=== PATIENT | female | born 1955 | race Caucasian/White ===

== ENCOUNTER 2018-06-02 10:25 | Inpatient (IN) | payer OTHER ==
[~2018-06-02] VITALS: Ht 167.6 cm; Wt 137.2 kg
[2018-06-02] MEDS ORDERED: SODIUM CHLORIDE FLUSH 10ML SYR IVF ONE (11:30)
[2018-06-02 12:01] LABS: BASOPHILS # (AUTO) 0.12 x10^3/uL (0-0.1); BASOPHILS % (AUTO) 1 % (0-1); EOSINOPHILS # (AUTO) 0.22 x10^3/uL (0-0.4); EOSINOPHILS % (AUTO) 2 % (1-7); LYMPHOCYTES # (AUTO) 1.59 x10^3/uL (1-3.4); LYMPHOCYTES % (AUTO) 14 % (22-44); MD NO; MEAN CORPUSCULAR HGB CONC 33.3 g/dL (32.4-35.8); MEAN PLATELET VOLUME 8.4 fL (7.4-10.4); MONOCYTES # (AUTO) 0.68 x10^3/uL (0.2-0.8); MONOCYTES % (AUTO) 6 % (2-9); NEUTROPHILS # (AUTO) 8.78 x10^3/uL (1.8-6.8); NEUTROPHILS % (AUTO) 77 % (42-75); PLATELET COUNT 215 x10^3/uL (130-400); RED BLOOD COUNT 4.68 x10^6/uL (3.82-5.3); RED CELL DISTRIBUTION WIDTH 15.2 % (9.6-15.2)
[2018-06-02 12:11] LABS: ALANINE AMINOTRANSFERASE 46 U/L (12-78); ALBUMIN 2.9 g/dL (3.4-5.0); ANION GAP 10 mmol/L (5-15); CALCIUM 9.3 mg/dL (8.5-10.1); CHLORIDE 102 mmol/L (98-107); CREATININE 0.87 mg/dL (0.55-1.02)
[2018-06-02 12:16] LABS: ALKALINE PHOSPHATASE 140 U/L (45-117); BILIRUBIN,TOTAL 0.7 mg/dL (0.2-1.0); TOTAL PROTEIN 7.2 g/dL (6.4-8.2); TROPONIN I < 0.015 ng/mL (0.000-0.045)
[2018-06-02] MEDS ORDERED: OMNIPAQUE 350 MG/ML, 100ML BOTTLE ONE (12:57)
[2018-06-02] MEDS ORDERED: FUROSEMIDE 20 MG/2 ML IV ONE (13:00)
[2018-06-02] MEDS ORDERED: HEPARIN 25,000 UNITS/500ML PMX 500 ML ONE (13:29)
[2018-06-02] MEDS ORDERED: FUROSEMIDE 20 MG/2 ML ONE (13:29)
[2018-06-02] MEDS ORDERED: HEPARIN 5,000 UNITS/ML, 1ML ONE (13:29)
[2018-06-02] MEDS ORDERED: HEPARIN 25,000 UNITS/500ML PMX 500 ML IV PRN (13:30)
[2018-06-02] MEDS ORDERED: HEPARIN 5,000 UNITS/ML, 1ML IV ONE (13:30)
[2018-06-02] MEDS ORDERED: HEPARIN 5,000 UNITS/ML, 1ML IV PRN (13:30)
[2018-06-02] MEDS ORDERED: ONDANSETRON ODT 4 MG PO PRN (15:00)
[2018-06-02] MEDS ORDERED: morphine SULFATE 10 MG/ML, 1ML IVPush PRN (15:00)
[2018-06-02] MEDS ORDERED: ONDANSETRON 2MG/ML, 2ML IVPush PRN (15:00)
[2018-06-02] MEDS ORDERED: LABETALOL 5MG/ML, 20ML IVPush PRN (15:00)
[2018-06-02] MEDS ORDERED: POLYETHYLENE GLYCOL 17 GM PACKET PO PRN (15:00)
[2018-06-02] MEDS ORDERED: GUAIFENESIN/DM 200-20MG, 10ML UDC PO PRN (15:00)
[2018-06-02 15:05] VITALS: BP 140/97
[2018-06-02 15:51] LABS: FREE T4 (FREE THYROXINE) 1.31 ng/dL (0.76-1.46); TROPONIN I < 0.015 ng/mL (0.000-0.045)
[2018-06-02] MEDS ORDERED: LOSA100T2 PO (16:17)
[2018-06-02] MEDS ORDERED: ROSU20TA28 PO (16:23)
[2018-06-02] MEDS ORDERED: OMEG-123 PO (16:23)
[2018-06-02] MEDS ORDERED: POTA10TA11 PO (16:23)
[2018-06-02] MEDS ORDERED: GABA100C PO (16:23)
[2018-06-02] MEDS ORDERED: DOXA1TAB2 PO (16:23)
[2018-06-02] MEDS ORDERED: CALC-192 PO (16:23)
[2018-06-02] MEDS ORDERED: FURO20TA3 PO (16:23)
[2018-06-02] MEDS ORDERED: MULT-658 PO (16:23)
[2018-06-02] MEDS ORDERED: GABAPENTIN 100 MG CAPSULE PO PRN (17:30)
[2018-06-02] MEDS: ENOXAPARIN 40 MG/0.4 ML SQ SCH (18:06)
[2018-06-02] MEDS: ENOXAPARIN 100 MG/ML SQ SCH (18:06)
[2018-06-02 20:06] VITALS: BP 126/78
[2018-06-02 21:19] LABS: TROPONIN I < 0.015 ng/mL (0.000-0.045)
[2018-06-03 01:12] VITALS: BP 126/78
[2018-06-03 05:38] LABS: BASOPHILS # (AUTO) 0.08 x10^3/uL (0-0.1); BASOPHILS % (AUTO) 1 % (0-1); EOSINOPHILS # (AUTO) 0.41 x10^3/uL (0-0.4); EOSINOPHILS % (AUTO) 4 % (1-7); LYMPHOCYTES # (AUTO) 1.72 x10^3/uL (1-3.4); LYMPHOCYTES % (AUTO) 18 % (22-44); MD NO; MEAN CORPUSCULAR HEMOGLOBIN 34.9 pg (27.0-34.8); MEAN CORPUSCULAR HGB CONC 33.3 g/dL (32.4-35.8); MEAN CORPUSCULAR VOLUME 104.7 fL (80-100); MEAN PLATELET VOLUME 8.6 fL (7.4-10.4); MONOCYTES # (AUTO) 0.53 x10^3/uL (0.2-0.8); MONOCYTES % (AUTO) 6 % (2-9); NEUTROPHILS # (AUTO) 6.58 x10^3/uL (1.8-6.8); NEUTROPHILS % (AUTO) 71 % (42-75); PLATELET COUNT 199 x10^3/uL (130-400); RED BLOOD COUNT 4.49 x10^6/uL (3.82-5.3); RED CELL DISTRIBUTION WIDTH 15.6 % (9.6-15.2)
[2018-06-03 05:47] LABS: ALBUMIN 2.6 g/dL (3.4-5.0); ANION GAP 9 mmol/L (5-15); CALCIUM 9.1 mg/dL (8.5-10.1); CHLORIDE 102 mmol/L (98-107)
[2018-06-03 05:59] LABS: ALANINE AMINOTRANSFERASE 36 U/L (12-78); ALKALINE PHOSPHATASE 124 U/L (45-117); BILIRUBIN,TOTAL 0.9 mg/dL (0.2-1.0); CREATININE 0.91 mg/dL (0.55-1.02); TOTAL PROTEIN 6.5 g/dL (6.4-8.2)
[2018-06-03] MEDS: DOXAZOSIN 2MG TABLET PO SCH (07:37)
[2018-06-03] MEDS: SENNA/DOCUSATE TABLET PO SCH (07:37)
[2018-06-03] MEDS: ENOXAPARIN 100 MG/ML SQ SCH ×2 (07:37→20:45)
[2018-06-03] MEDS: ENOXAPARIN 40 MG/0.4 ML SQ SCH ×2 (07:37→20:45)
[2018-06-03] MEDS: THIAMINE 100MG TABLET PO SCH (07:38)
[2018-06-03] MEDS: FOLIC ACID 1 MG TABLET PO SCH (07:38)
[2018-06-03] MEDS: MULTIVITAMIN 1 TABLET PO SCH (07:38)
[2018-06-03] MEDS: DHA PO SCH (07:47)
[2018-06-03] MEDS: OMEGA PO SCH (07:47)
[2018-06-03] MEDS: EPA PO SCH (07:47)
[2018-06-03] MEDS: ROSUVASTATIN CALCIUM 20 MG PO SCH (07:47)
[2018-06-03] MEDS: FISH OIL PO SCH (07:47)
[2018-06-03 07:50] VITALS: BP 123/82
[2018-06-03] MEDS ORDERED: LOSARTAN 50MG TABLET PO SCH (09:00)
[2018-06-03 12:18] VITALS: BP 123/79
[2018-06-03] MEDS ORDERED: SODIUM CHLORIDE 0.9% 1,000 ML IV SCH (17:00)
[2018-06-03 20:00] VITALS: BP 119/83
[2018-06-04 01:38] VITALS: BP 109/75
[2018-06-04 05:58] LABS: BASOPHILS # (AUTO) 0.15 x10^3/uL (0-0.1); BASOPHILS % (AUTO) 2 % (0-1); EOSINOPHILS % (AUTO) 4 % (1-7); LYMPHOCYTES # (AUTO) 1.56 x10^3/uL (1-3.4); LYMPHOCYTES % (AUTO) 17 % (22-44); MD NO; MEAN CORPUSCULAR HEMOGLOBIN 34.5 pg (27.0-34.8); MEAN CORPUSCULAR HGB CONC 33.1 g/dL (32.4-35.8); MEAN CORPUSCULAR VOLUME 104.1 fL (80-100); MEAN PLATELET VOLUME 8.3 fL (7.4-10.4); MONOCYTES # (AUTO) 0.58 x10^3/uL (0.2-0.8); MONOCYTES % (AUTO) 6 % (2-9); NEUTROPHILS # (AUTO) 6.52 x10^3/uL (1.8-6.8); NEUTROPHILS % (AUTO) 71 % (42-75); PLATELET COUNT 218 x10^3/uL (130-400); RED BLOOD COUNT 4.39 x10^6/uL (3.82-5.3); RED CELL DISTRIBUTION WIDTH 15.3 % (9.6-15.2)
[2018-06-04 06:13] LABS: ALBUMIN 2.5 g/dL (3.4-5.0); CALCIUM 9.1 mg/dL (8.5-10.1); CREATININE 0.71 mg/dL (0.55-1.02)
[2018-06-04 06:19] LABS: ANION GAP 7 mmol/L (5-15); CHLORIDE 102 mmol/L (98-107)
[2018-06-04 07:36] VITALS: BP 119/79
[2018-06-04] MEDS: ENOXAPARIN 100 MG/ML SQ SCH (07:53)
[2018-06-04] MEDS: ENOXAPARIN 40 MG/0.4 ML SQ SCH (07:54)
[2018-06-04] MEDS: FOLIC ACID 1 MG TABLET PO SCH (09:24)
[2018-06-04] MEDS: SENNA/DOCUSATE TABLET PO SCH (09:24)
[2018-06-04] MEDS: THIAMINE 100MG TABLET PO SCH (09:24)
[2018-06-04] MEDS: MULTIVITAMIN 1 TABLET PO SCH (09:24)
[2018-06-04] MEDS: LOSARTAN 50MG TABLET PO SCH (09:24)
[2018-06-04] MEDS: EPA PO SCH (09:25)
[2018-06-04] MEDS: DOXAZOSIN 2MG TABLET PO SCH (09:25)
[2018-06-04] MEDS: ROSUVASTATIN CALCIUM 20 MG PO SCH (09:25)
[2018-06-04] MEDS: FISH OIL PO SCH (09:25)
[2018-06-04] MEDS: OMEGA PO SCH (09:25)
[2018-06-04] MEDS: DHA PO SCH (09:25)
[2018-06-04 13:24] VITALS: BP 117/77
[2018-06-04] MEDS: RIVAROXABAN 15 MG TABLET PO SCH (17:23)
[2018-06-04 21:00] VITALS: BP 117/72
[2018-06-05 02:13] VITALS: BP 125/77
[2018-06-05 05:37] LABS: BASOPHILS # (AUTO) 0.14 x10^3/uL (0-0.1); BASOPHILS % (AUTO) 2 % (0-1); EOSINOPHILS # (AUTO) 0.28 x10^3/uL (0-0.4); EOSINOPHILS % (AUTO) 4 % (1-7); LYMPHOCYTES # (AUTO) 1.05 x10^3/uL (1-3.4); LYMPHOCYTES % (AUTO) 14 % (22-44); MD NO; MEAN CORPUSCULAR HEMOGLOBIN 34.8 pg (27.0-34.8); MEAN CORPUSCULAR HGB CONC 33.5 g/dL (32.4-35.8); MEAN PLATELET VOLUME 8.4 fL (7.4-10.4); MONOCYTES # (AUTO) 0.38 x10^3/uL (0.2-0.8); MONOCYTES % (AUTO) 5 % (2-9); NEUTROPHILS % (AUTO) 75 % (42-75); PLATELET COUNT 221 x10^3/uL (130-400); RED BLOOD COUNT 4.24 x10^6/uL (3.82-5.3); RED CELL DISTRIBUTION WIDTH 15.4 % (9.6-15.2)
[2018-06-05 05:44] LABS: ALBUMIN 2.4 g/dL (3.4-5.0); CHLORIDE 100 mmol/L (98-107)
[2018-06-05 05:48] LABS: ANION GAP 5 mmol/L (5-15); CALCIUM 8.8 mg/dL (8.5-10.1); CREATININE 0.58 mg/dL (0.55-1.02)
[2018-06-05 07:12] VITALS: BP 123/85
[2018-06-05] MEDS: THIAMINE 100MG TABLET PO SCH (08:41)
[2018-06-05] MEDS: RIVAROXABAN 15 MG TABLET PO SCH (08:41)
[2018-06-05] MEDS: OMEGA PO SCH (08:42)
[2018-06-05] MEDS: ROSUVASTATIN CALCIUM 20 MG PO SCH (08:42)
[2018-06-05] MEDS: LOSARTAN 50MG TABLET PO SCH (08:42)
[2018-06-05] MEDS: MULTIVITAMIN 1 TABLET PO SCH (08:42)
[2018-06-05] MEDS: DHA PO SCH (08:42)
[2018-06-05] MEDS: EPA PO SCH (08:42)
[2018-06-05] MEDS: FOLIC ACID 1 MG TABLET PO SCH (08:42)
[2018-06-05] MEDS: DOXAZOSIN 2MG TABLET PO SCH (08:42)
[2018-06-05] MEDS: SENNA/DOCUSATE TABLET PO SCH (08:42)
[2018-06-05] MEDS: FISH OIL PO SCH (08:42)
[2018-06-05] MEDS ORDERED: THIA100T67 PO (13:42)
[2018-06-05] MEDS ORDERED: RIVA15TA PO (13:42)
== END 2018-06-05 15:40 | disposition home or self-care (01) | DRG 175 ==
LOC: ED 13:56 → 4WST 13:57 → DCLOUNGE 06-05 15:28
PROVIDERS: ADMIT Internal Medicine; ATTEND Internal Medicine
DX: I26.09 Other pulmonary embolism with acute cor pulmonale (principal); J96.01 Acute respiratory failure with hypoxia; I50.41 Acute combined systolic (congestive) and diastolic (congestive) heart failure; E44.0 Moderate protein-calorie malnutrition; Z68.42 Body mass index [BMI] 45.0-49.9, adult; I82.432 Acute embolism and thrombosis of left popliteal vein; D75.89 Other specified diseases of blood and blood-forming organs; E66.01 Morbid (severe) obesity due to excess calories; E78.00 Pure hypercholesterolemia, unspecified; E78.5 Hyperlipidemia, unspecified; G47.33 Obstructive sleep apnea (adult) (pediatric); I11.0 Hypertensive heart disease with heart failure; I27.20 Pulmonary hypertension, unspecified; Z79.01 Long term (current) use of anticoagulants; Z80.7 Family history of other malignant neoplasms of lymphoid, hematopoietic and related tissues; Z82.49 Family history of ischemic heart disease and other diseases of the circulatory system; Z85.828 Personal history of other malignant neoplasm of skin; D72.829 Elevated white blood cell count, unspecified; Z82.0 Family history of epilepsy and other diseases of the nervous system
CPT/HCPCS: 36415; 71045; 71275; 80048; 80053; 82040; 82607; 83735; 83880; 84100; 84439; 84443; 84484; 85025; 85520; 93005; 93306; 96374; 99291; J1644; J1650; Q9967; J1940; J7030

== ENCOUNTER → 2018-07-14 | Outpatient (CLI) | payer OTHER ==
[~2018-07-14] MED LIST: CALC-192 PO; DOXA1TAB2 PO; FURO20TA3 PO; GABA100C PO; LOSA100T2 PO; MULT-658 PO; OMEG-123 PO; POTA10TA11 PO; RIVA15TA PO; ROSU20TA28 PO; THIA100T67 PO
== END | disposition home or self-care (01) ==
LOC: CVU 15:32
PROVIDERS: ATTEND Internal Medicine Cardiovascular Disease
DX: Z13.89 Encounter for screening for other disorder (principal); I34.0 Nonrheumatic mitral (valve) insufficiency; I26.99 Other pulmonary embolism without acute cor pulmonale; I82.409 Acute embolism and thrombosis of unspecified deep veins of unspecified lower extremity; E78.5 Hyperlipidemia, unspecified
CPT/HCPCS: 0399T; 93306